=== PATIENT | male | born 1955 | race Caucasian/White ===

== ENCOUNTER 2025-03-18 07:11 | Day surgery (SDC) | payer MEDICARE, OTHER ==
[~2025-03-18 07:11] MED LIST: Sodium Chloride 0.9% 10 ML Syringe FLUSH PRN; Sodium Chloride 0.9% 10 ML Syringe FLUSH SCH
[2025-03-18] MEDS: Lactated Ringers 1,000 ML IV SCH (07:35)
[2025-03-18] MEDS ORDERED: Propofol 200 MG/20 ML SDV ONE ×2 (08:13→08:17)
== END 2025-03-18 09:15 | disposition home or self-care (01) ==
LOC: JD.SDS 07:11
PROVIDERS: ATTEND Surgery
DX: Z12.11 Encounter for screening for malignant neoplasm of colon (principal); E78.00 Pure hypercholesterolemia, unspecified; I10 Essential (primary) hypertension; K21.9 Gastro-esophageal reflux disease without esophagitis; E11.9 Type 2 diabetes mellitus without complications; F17.200 Nicotine dependence, unspecified, uncomplicated; Z79.899 Other long term (current) drug therapy
CPT/HCPCS: G0121; J2704; J7120; 00812; 99100